=== PATIENT | female | born 1990 | race Caucasian/White ===

== ENCOUNTER 2021-12-15 05:18 | Emergency (ER) | payer OTHER ==
[~2021-12-15] VITALS: Ht 182.9 cm; Wt 79.5 kg
[2021-12-15 05:24] VITALS: BP 112/70; PULSE 67; TEMP 97.8
[2021-12-15 05:59] LABS: COLLECTION METHOD CLEAN CATCH
[2021-12-15 06:15] LABS: PH 6.5 (5.0-8.5); URINE APPEARANCE Hazy (CLEAR/HAZY); URINE BLOOD 2+ (NEGATIVE); URINE COLOR Yellow (YELLOW); URINE GLUCOSE Negative (NEGATIVE); URINE KETONE Negative (NEGATIVE); URINE NITRATE Negative (NEGATIVE); URINE PROTEIN(semi-quant) Negative (NEGATIVE); URINE UROBILINOGEN 0.2 E.U/dL (0.2-1.0)
[2021-12-15 06:16] LABS: SQUAMOUS EPITHELIAL 0-2 /hpf (0-10); URINE BACTERIA Rare /hpf (NONE SEEN)
[2021-12-15] MEDS ORDERED: PYRIDIUM 100MG100 MG PO (06:27)
[2021-12-15] MEDS ORDERED: CEPHALEXIN500 M1 PO (06:27)
== END 2021-12-15 06:45 | disposition home or self-care (01) ==
LOC: COL.ER 05:18
PROVIDERS: Emergency Medicine
DX: N39.0 Urinary tract infection, site not specified (principal); Z88.2 Allergy status to sulfonamides; Z28.310 Unvaccinated for COVID-19